=== PATIENT | male | born 1995 | race Caucasian/White ===

== ENCOUNTER 2020-12-12 08:17 | Emergency (ER) | payer OTHER ==
[~2020-12-12] VITALS: Ht 188 cm; Wt 68.5 kg
--- NOTE | 2020-12-12 08:41 | NUR ---
PATIENT JOSHUA FROM HOME, S/P INGESTED 60 TABLETS OF ZIPRASIDONE 20MG DOSE. PATIENT A/OX4, BREATHING EVEN AND UNLABORED, NO CHANGE IN LOC, WAS ABLE TO AMBULATE TO THE RESTROOM. STILL FEELING SUICIDAL. SITTER AT BEDSIDE, SECURITY CALLED FOR WANDING.
--- NOTE | 2020-12-12 08:42 | NUR ---
[employer] OFFICERS AT BEDSIDE FOR INTERVIEW.
--- NOTE | 2020-12-12 08:49 | NUR ---
RECEIVED RECOMMENDATION FROM POISON CONTROL SAM, GIVE ACTIVATED CHARCOAL 50MG X1 NOW, EKG NOW AND REPEAT IN 6 HOURS, PHOTOGRAPHIC PROCESS ATTENDANT X6 HOURS, ORDER LABS CMP, CALCIUM, MAGNESIUM, POTASSIUM AND TYLENOL LEVEL.
--- NOTE | 2020-12-12 08:50 | NUR ---
PATIENT PLACED ON A ROOFER APPRENTICE.
--- NOTE | 2020-12-12 08:57 | NUR ---
URINE SAMPLE SENT TO LAB
--- NOTE | 2020-12-12 08:57 | NUR ---
COVID SWAB SENT.
[2020-12-12 09:11] LABS: BASOPHILS % (AUTO) 0.5 % (0.0-2.0); EOSINOPHILS % (AUTO) 3.8 % (0.0-6.0); HEMATOCRIT 45 % (39-51); HEMOGLOBIN 15.6 g/dL (13.5-17.5); LYMPHOCYTES # (AUTO) 1.8 /CMM (0.8-4.8); LYMPHOCYTES % (AUTO) 23.3 % (20.0-44.0); MEAN CORPUSCULAR HGB CONC 35 g/dl (31.0-36.0); MEAN CORPUSCULAR VOLUME 88 fL (80-96); MONOCYTES # (AUTO) 0.8 /CMM (0.1-1.30); MONOCYTES % (AUTO) 10.1 % (2.0-12.0); NEUTROPHILS # (AUTO) 4.9 /CMM (1.8-8.9); NEUTROPHILS % (AUTO) 62.3 % (43.0-81.0); PLATELET COUNT (AUTO) 168 /CMM (150-450); RED BLOOD CELL COUNT(AUTO) 5.12 MIL/uL (4.5-6.0); WHITE BLOOD COUNT (AUTO) 7.9 K/uL (4.3-11.0)
--- NOTE | 2020-12-12 09:30 | NUR ---
PATIENT RESTING, ON THE PHONE. NO DISTRESS NOTED. VSS.
[2020-12-12 09:36] LABS: CALCIUM, SERUM 7.9 mg/dL (8.5-10.1); CARBON DIOXIDE 27 mmol/L (21-32); CHLORIDE 106 mmol/L (98-107); CREATININE 0.9 mg/dL (0.6-1.3); GLUCOSE 95 mg/dL (74-106); POTASSIUM 3.8 mmol/L (3.5-5.1); SODIUM SERUM 141 mmol/L (136-145); UREA NITROGEN, BLOOD 12 mg/dL (7-18)
[2020-12-12 09:41] LABS: ALANINE AMINOTRANSFERASE 23 U/L (12-78); ALBUMIN 4.1 g/dL (3.4-5.0); ALKALINE PHOSPHATASE 108 U/L (46-116); ASPARTATE AMINOTRANSFERASE 22 U/L (15-37); BILIRUBIN,DIRECT 0.1 mg/dL (0.0-0.2); BILIRUBIN,TOTAL 0.3 mg/dL (0.2-1.0); TOTAL PROTEIN, SERUM 7.3 g/dL (6.4-8.2)
[2020-12-12 09:46] LABS: ACETAMINOPHEN 0 ug/ml (10-30); ALCOHOL, BLOOD < 3 mg/dL (0-0)
--- NOTE | 2020-12-12 09:51 | NUR ---
GAVE PARENTS AN UPDATE. MOTHER KOBY TAVERAS [phone], FATHER JORI BRYSON [phone]
--- NOTE | 2020-12-12 09:58 | NUR ---
COVID NEGATIVE RESULT.
--- NOTE | 2020-12-12 10:35 | NUR ---
POST SECONDARY PROFESSIONAL AT BEDSIDE FOR EVAL.
[2020-12-12 10:55] LABS: BILIRUBIN,URINE Negative (NEGATIVE); COLOR,URINE YELLOW (YELLOW); LEUKOCYTE ESTERASE ,URINE Small (NEGATIVE); NITRITE, URINE Negative (NEGATIVE); PH,URINE 7.5 (5.0-8.0); PROTEIN,URINE Negative (NEGATIVE); UGLUCOSE Negative (NEGATIVE); UROBILINOGEN,URINE 0.2 EU/dL (0.2)
[2020-12-12 10:57] LABS: BACTERIA,URINE Rare /HPF (None Seen); RBC,URINE 0-2 /HPF (0-2); SQUAMOUS EPITHELIAL CELL,UR Rare /HPF (None Seen)
--- NOTE | 2020-12-12 11:52 | NUR ---
Bus And Trolley Dispatcher Consultation: 10:30am: Bus And Trolley Dispatcher consultation requested for SI. This SW met with the patient in the ED. Patient was brought in to the ED on 12/12/20 for SI. Patient is a 25 year old male, awake, alert, oriented, cooperative with this SW. Patient reported being dizzy, and therefore kept his eyes closed throughout the interview, however was engaged in this interview. Patient reports having taken a full bottle of Geodon (60 pills) last night. Patient reported he had just picked up his prescription yesterday, and took the entire bottle because "I was feeling low". Patient reports diagnosis of Bipolar Disorder, with frequent mood swings. Patient report hx of SI about 1 year ago by asphyxiation, when he left the car running in the garage while he was sitting in it. Patient reports hx of psychiatric hospitalization about 4 years ago. Patient states that he has a psychiatrist at [facility], Dr. Harden, however did not have contact information for Dr. Harden. Patient stated that he was living in [facility] with a roommate, however he moved in with his mother on Thursday, [address], [place] [address]. SW asked patient if patient would authorize this SW to speak with his mother, and patient provided verbal consent for this SW to speak with his mother, Jose G Beth [phone]. SW discussed voluntary psychiatric hospitalization with the patient, and patient stated that he wanted to go home for a couple of days before going into treatment. Patient denied current SI, stating "I promise I don't want to hurt myself". Patient denied HI. Patient denied hallucinations. Patient speech and thought process were clear. SW asked patient if SW could contact patient's psychiatrist, and patient provided this SW with verbal consent to call his psychiatrist Dr. Harden. SW met charge nurse Sonia, ESTER Yang, and Dr. Frost and discussed above. The plan is for patient to remain in the ED for observation. SW will contact patient's mother and psychiatrist, if able to locate phone number, to discuss plan of care.
--- NOTE | 2020-12-12 12:04 | NUR ---
11:00am: This SW called patient's mother Jose G, , but was unable to connect with her. Voicemail message left, requesting a call back. 11:05am: SW received a call back from patient's mother Jose G. Jose G expressed concerns over patient's numerous suicidal comments and social media posts over the past few months. Jose G also reported that patient has attempted suicide 4 times over the past 6 months, however always denies SI when paramedics arrive and therefore does not go into treatment. SAMANTA informed Jose G that patient is current denying SI, however SW can attempt to contact patient's psychiatrist. Jose G provided this SW with the phone number to patient's psychiatrist, Dr. Harden, . SW to follow-up with Dr. Harden, and subsequently with Jose G. 11:20am: SAMANTA called Yo, , in an attempt to establish contact with Dr. Harden. SAMANTA spoke with Chris at the call center. Chris attempted to contact Dr. Harden's office, but was not successful. Chris sent an urgent message to Dr. Harden's office, requesting a call back to this SW. SAMANTA provided Chris with her contact number. 11:30am: SAMANTA informed ESTER Yang about conversation with patient's mother, and the attempt to contact patient's psychiatrist. Trey stated that she would inform Dr. Frost. Crude Oil Treater will remain available to coordinate plan of care.
--- NOTE | 2020-12-12 12:38 | NUR ---
SAMANTA consulted with ESTER Scott regarding patient's plan of care. It was decided that [facility] would be called for a psychiatric evaluation of the patient. ekg tech Josiah to call. Emergency Medicine will remain available to assist with coordination of care.
--- NOTE | 2020-12-12 13:33 | NUR ---
CALLED [facility] GAVE INITIAL VS AND DR. LOZA WILL CALL US BACK.
--- NOTE | 2020-12-12 13:58 | NUR ---
Digital Composer: Per request, SAMANTA spoke to patient's mother Lizette [phone] to discuss the patient's plan of care. SAMANTA updated Lizette and stated that a request has been sent to [facility] for psychiatric evaluation of the patient. SAMANTA will remain available to assist with coordination of care.
--- NOTE | 2020-12-12 14:24 | NUR ---
PATIENT IS ON A 5150 HOLD. MOLDED GOODS OPERATOR MADE AWARE.
--- NOTE | 2020-12-12 14:32 | NUR ---
CALLED [facility] WILL LOOK FOR BEDS AND CALL US BACK.
--- NOTE | 2020-12-12 14:33 | NUR ---
POISON CONTROL UPDATED WITH VS, LABS AND REPEAT EKG.
--- NOTE | 2020-12-12 14:53 | NUR ---
Medical Doctor Md UPDATE: Medical Doctor Md was informed by ESTER Yang that upon arrival, patient was placed on a hold by [employer]. Plan of care will be to transfer patient to a [facility] inpatient psychiatric hospital. Medical Doctor Md will remain available to assist with coordinate of care.
--- NOTE | 2020-12-12 15:14 | NUR ---
SPOKE TO JANUARY FROM [facility], NEED TO FAX CLINICALS TO [facility] AT . [facility] PHONE #
--- NOTE | 2020-12-12 15:48 | NUR ---
[facility]
--- NOTE | 2020-12-12 16:11 | NUR ---
PATIENT ASLEEP, NO DISTRESS NOTED.
--- NOTE | 2020-12-12 17:58 | NUR ---
SPOKE TO PARAG AT [facility], WAITING FOR DISCHARGES AT [facility]. WILL CALL BACK ONCE THERE'S A BED.
--- NOTE | 2020-12-12 19:11 | NUR ---
ENDORSED TO JOHN NORMAN FOR RAJAN.
--- NOTE | 2020-12-12 19:26 | NUR ---
PT AAOX4. AWARE OF PLAN OF CARE.
--- NOTE | 2020-12-12 23:10 | NUR ---
TRANSFER INFO DE [facility] MD [place] REPROT [phone] [address] AUTH MD JACKSON INCLUDE HOLD AND INFO ETA [id number]
[2020-12-12 23:13] VITALS: BP 131/81
--- NOTE | 2020-12-12 23:21 | NUR ---
REPORT GIVEN TO KALPESH NORMAN FOR RAJAN
--- NOTE | 2020-12-13 00:31 | NUR ---
REPORT GIVEN TO EMT, PT TRANSFERED.
== END 2020-12-13 00:38 ==
LOC: ER 08:41
DX: T43.592A Poisoning by other antipsychotics and neuroleptics, intentional self-harm, initial encounter (principal); Y92.89 Other specified places as the place of occurrence of the external cause; F12.10 Cannabis abuse, uncomplicated; Z20.822 Contact with and (suspected) exposure to COVID-19
CPT/HCPCS: 36415; 80048; 80076; 80299; 80307; 80320; 81001; 83735; 85025; 87086; 87426; 93005 ×2; 99285; C9803; G0480